=== PATIENT | male | born 1995 | race Caucasian/White ===

== ENCOUNTER 2018-05-09 18:10 | Emergency (ER) | payer OTHER ==
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
[2018-05-09] MEDS ORDERED: OXYCODONE/APAP 5/325MG PREPACK#4 BTL TAKEHOME ONE (20:07)
[2018-05-09 20:22] VITALS: BP 124/76
== END 2018-05-09 20:20 | disposition home or self-care (01) ==
DX: S52.571A Other intraarticular fracture of lower end of right radius, initial encounter for closed fracture (principal); S52.122A Displaced fracture of head of left radius, initial encounter for closed fracture; V18.0XXA Pedal cycle driver injured in noncollision transport accident in nontraffic accident, initial encounter; Y99.8 Other external cause status; Y93.55 Activity, bike riding
CPT/HCPCS: A4565

== ENCOUNTER → 2018-05-11 | Outpatient (CLI) | payer OTHER | LOC: FIMAGING 16:45 | PROVIDERS: ATTEND Physician Assistant | DX: S52.501D Unspecified fracture of the lower end of right radius, subsequent encounter for closed fracture with routine healing (principal) ==